=== PATIENT | female | born 1995 | race Caucasian/White ===

== ENCOUNTER 2016-12-27 23:35 | Emergency (ER) | payer OTHER ==
[~2016-12-27] VITALS: Ht 172.7 cm; Wt 61.8 kg
[2016-12-27 23:37] VITALS: TEMP 36.7; Ht 172.7 cm; Wt 61.8 kg
[2016-12-28] MEDS ORDERED: LORAZEPAM 2 MG/ML 1 ML VIAL IV STA (00:07)
[2016-12-28 00:37] LABS: BASO % 0.2 %; BASO ABS # 0.02 K/uL (0-0.2); COMPLETE YES; EOS % 2.6 %; HEMATOCRIT 36.4 % (37-47); IG% 0.3 %; LYMPH % 24.1 %; LYMPH ABS # 2.17 K/uL (1.2-3.4); MEAN CELL VOLUME 87.3 fL (80-100); MEAN CORPUSCULAR HEMOGLOBIN 29.5 pg (25-34); MEAN CORPUSCULAR HGB CONC 33.8 g/dl (32-36); MEAN PLATELET VOLUME 9.4 fL (7.4-10.4); MONO % 8.2 %; NEUT % 64.6 %; PLATELET COUNT 298 K/uL (130-400); RED BLOOD COUNT 4.17 M/uL (4.2-5.4); WHITE BLOOD COUNT 9.01 K/uL (4.8-10.8)
[2016-12-28 00:52] VITALS: O2SAT 100
[2016-12-28 00:53] LABS: ALT/SGPT 23 U/L (12-78); AST/SGOT 11 U/L (15-37); BLOOD UREA NITROGEN 13 mg/dl (7-18); BUN/CREATININE RATIO 14.7 (10-20); CALCIUM 8.7 mg/dl (8.5-10.1); CARBON DIOXIDE 28 mmol/L (21-32); CHLORIDE 105 mmol/L (98-107); CREATININE 0.86 mg/dl (0.60-1.20); GLUCOSE 88 mg/dl (70-99); POTASSIUM 3.6 mmol/L (3.5-5.1); SODIUM 141 mmol/L (136-145)
[2016-12-28] MEDS ORDERED: KETOROLAC TROMETHAMINE 30 MG/ML VIAL IV STA (00:53)
[2016-12-28 00:56] LABS: PREG INTERNAL NEGATIVE QC NEG CLEAR BACKGROUND; PREG INTERNAL POSITIVE QC POS CONTROL LINE
[2016-12-28 01:04] LABS: ALKALINE PHOSPHATASE 47 U/L (45-117)
[2016-12-28 01:59] VITALS: BP 113/87; PULSE 75; O2SAT 98
[2016-12-28] MEDS ORDERED: ATIVAN 1MG HOMEPACK PO ONE (02:00)
--- NOTE | 2016-12-28 03:56 | EMERGENCY ROOM VISIT NOTE ---
History First contact with patient: 23:49 Chief Complaint: CHEST PAIN Stated Complaint: CHEST PAINS AND DIZZINESS Nursing Triage Summary: pt states she started fluoxetine and buspirone today. hx of anxiety, pt states "I've had chest pain before because of my anxiety." states chest pain tonight, "was different." denies n/v/sob, states she does feel dizzy. History of Present Illness The patient is a 21 year old female who presents to the Emergency Room with complaints of intermittent chest pain and dizziness for the past few hours after taking Prozac and BuSpar. Patient states her psychiatrist prescribed this to her yesterday. She took 2 doses of BuSpar and her first of Prozac today. She states shortly after taking the Prozac or symptoms started. Patient states she was placed on this for OCD and anxiety. He did not do blood work prior to placing her on these medications. Patient describes the pain as aching, ranging in severity 4-10 throughout her chest. Nothing makes it better or worse. Patient denies fever, chills, cough, congestion, dyspnea, palpitations, abdominal pain, delusions, hallucinations, suicidal or homicidal ideations. Review of Systems See HPI for pertinent positives & negatives. A total of 10 systems reviewed and were otherwise negative. Past Medical/Surgical History OCD, anxiety Social History Smoking Status: Never Smoker Smokeless Tobacco Use: No Alcohol Use: none Drug Use: none Occupation Status: [employer] Allergies Coded Allergies: Nickel (Verified Adverse Reaction, Intermediate, rash, 12/27/16) Physical Exam Vital Signs Date Time Temp Pulse Resp B/P Pulse Ox O2 Delivery O2 Flow Rate FiO2 12/28/16 01:59 75 18 113/87 98 12/28/16 00:58 76 12/28/16 00:52 100 Room Air 12/28/16 00:37 100 Room Air 12/28/16 00:37 56 20 98/65 100 Room Air 12/28/16 00:19 98 Room Air 12/27/16 23:37 36.7 57 20 144/88 100 Room Air Pain Rating (0-10): 2.0 Physical Exam VITALS: Vitals are noted on the nurse's note and reviewed by myself. Vital signs stable. GENERAL: Pleasant female, in no acute distress, nondiaphoretic, well-developed well-nourished. SKIN: The skin was without rashes, erythema, edema, or bruising. There is no tenting of the skin. Capillary reflex less than 2 seconds. HEAD: Normocephalic atraumatic. EARS: External auditory canals clear, tympanic membranes pearly mckeon without erythema or effusion bilaterally. EYES: Pupils equal round and reactive to light and accommodation. Conjunctivae without injection, sclerae without icterus. Extraocular movements intact. NOSE: Patent, turbinates without inflammation or discharge. MOUTH: Mucous membranes moist. Pharynx without erythema or exudate. Uvula midline. Airway patent. Tongue does not deviate. NECK: Supple without nuchal rigidity. No lymphadenopathy. No thyromegaly. Cervical spine is nontender. No JVD. HEART: Regular rate and rhythm without murmurs gallops or rubs. Chest nontender to palpation LUNGS: Clear to auscultation bilaterally without wheezes, rales or rhonchi. No dullness to percussion. No retractions or accessory muscle use. ABDOMEN: Positive bowel sounds x 4. Normal tympanic percussion. Soft, nontender, without masses or organomegaly. Crum sign negative. No guarding or rebound tenderness. MUSCULOSKELETAL: No muscle atrophy, erythema, or edema noted. NEURO: Patient was alert and oriented to person place and time. Normal sensation to light and sharp touch. No focal neurological deficits. Psych: Pleasant and cooperative Medical Decision & Procedures Laboratory Results 12/28/16 00:30 Red Blood Count 4.17, Mean Corpuscular Volume 87.3, Mean Corpuscular Hemoglobin 29.5, Mean Corpuscular Hemoglobin Concent 33.8, Mean Platelet Volume 9.4, Neutrophils (%) (Auto) 64.6, Lymphocytes (%) (Auto) 24.1, Monocytes (%) (Auto) 8.2, Eosinophils (%) (Auto) 2.6, Basophils (%) (Auto) 0.2, Neutrophils # (Auto) 5.82, Lymphocytes # (Auto) 2.17, Monocytes # (Auto) 0.74, Eosinophils # (Auto) 0.23, Basophils # (Auto) 0.02 12/28/16 00:30 Test 12/28/16 00:30 White Blood Count 9.01 K/uL (4.8-10.8) Red Blood Count 4.17 M/uL (4.2-5.4) Hemoglobin 12.3 g/dL (12.0-16.0) Hematocrit 36.4 % (37-47) Mean Corpuscular Volume 87.3 fL (80-100) Mean Corpuscular Hemoglobin 29.5 pg (25-34) Mean Corpuscular Hemoglobin Concent 33.8 g/dl (32-36) Platelet Count 298 K/uL (130-400) Mean Platelet Volume 9.4 fL (7.4-10.4) Neutrophils (%) (Auto) 64.6 % Lymphocytes (%) (Auto) 24.1 % Monocytes (%) (Auto) 8.2 % Eosinophils (%) (Auto) 2.6 % Basophils (%) (Auto) 0.2 % Neutrophils # (Auto) 5.82 K/uL (1.4-6.5) Lymphocytes # (Auto) 2.17 K/uL (1.2-3.4) Monocytes # (Auto) 0.74 K/uL (0.11-0.59) Eosinophils # (Auto) 0.23 K/uL (0-0.5) Basophils # (Auto) 0.02 K/uL (0-0.2) RDW Standard Deviation 42.8 fL (36.4-46.3) RDW Coefficient of Variation 13.3 % (11.5-14.5) Immature Granulocyte % (Auto) 0.3 % Immature Granulocyte # (Auto) 0.03 K/uL (0.00-0.02) Anion Gap 8.0 mmol/L (3-11) Est Creatinine Clear Calc Drug Dose 101.8 ml/min Estimated GFR () 112.7 Estimated GFR (Non- 97.3 BUN/Creatinine Ratio 14.7 (10-20) Calcium Level 8.7 mg/dl (8.5-10.1) Total Bilirubin 0.2 mg/dl (0.2-1) Direct Bilirubin < 0.1 mg/dl (0-0.2) Aspartate Amino Transf (AST/SGOT) 11 U/L (15-37) Alanine Aminotransferase (ALT/SGPT) 23 U/L (12-78) Alkaline Phosphatase 47 U/L (45-117) Troponin I < 0.015 ng/ml (0-0.045) Total Protein 7.2 gm/dl (6.4-8.2) Albumin 3.5 gm/dl (3.4-5.0) Thyroid Stimulating Hormone (TSH) 1.690 uIu/ml (0.300-4.500) Human Chorionic Gonadotropin, Qual NEG (NEG) Medications Administered Medications (Trade) Dose Ordered Sig/Jade Route Start Time Stop Time Status Last Admin Dose Admin Lorazepam (Ativan Inj) 0.5 mg NOW STAT IV 12/28/16 00:07 12/28/16 00:09 DC 12/28/16 00:33 0.5 MG Lorazepam (Ativan 1MG Home Pack) 1 homepack UD ONCE PO 12/28/16 02:00 12/28/16 02:01 DC 12/28/16 01:55 1 HOMEPACK ED Course Prior records/ancillary studies reviewed. Triage Nursing notes reviewed. Additional history obtained from friends The patient's history was concerning for chest pain. Differential diagnosis: Etiologies such as side effect of medication, cardiac ischemia, aortic dissection, pulmonary embolism, pneumonia, pneumothorax, musculoskeletal, infections, pericarditis, myocarditis, esophageal rupture, gastrointestinal, as well as others were entertained. Physical examination: As above. ER treatment provided: Ativan On reassessment the patient felt better. Diagnostic interpretation by me: The electrocardiogram was negative for pathologic change. Normal sinus, normal intervals, no acute ST-T wave changes. Impression normal sinus rhythm interpreted by myself The labs revealed euthyroid. Negative troponin Imaging studies: Chest x-ray with no acute consolidation, pneumothorax or free air per my interpretation Exam and history seem consistent with chest pain most likely side effect to starting new medication. Patient was advised to stop the medication and see her psychiatrist on Thursday. Patient was advised if she develops suicidal or homicidal ideations to return to the ER immediately. She is advised to rest, decrease stress and see her therapist or here in the ER sooner for worsening signs or symptoms or as needed. Patient is neurovascularly and neurologically intact. She is well-appearing. By the evaluation outlined above emergent etiologies such as cardiac ischemia, aortic dissection, pulmonary embolism, pneumonia, pneumothorax, infections, pericarditis, myocarditis, gastrointestinal, as well as others were deemed relatively unlikely. The pt informed about the findings as listed above. All questions were answered and pleased with the treatment. Return instructions were outlined and the patient was discharged in stable condition. Outpatient prescription management: Ativan Referral: The patient was referred back to therapist and primary care physician for follow -up in 2 to 3 days for a recheck of the current condition. Case reviewed with my attending Medical Decision As above Impression Primary Impression: Non-cardiac chest pain Additional Impression: Medication side effect Departure Information Dispostion Home / Self-Care Condition GOOD Forms HOME CARE DOCUMENTATION FORM, IMPORTANT VISIT INFORMATION Patient Instructions My [facility], ED Chest Pain NonCardiac Additional Instructions Your symptoms are most likely a side effect from your medications. stop the medications now and notify your psychiatrist thursday morning. Rest and drink plenty of fluids as tolerated. Continue current medications. Avoid strenuous activities and anything that worsens your pain. Resume normal activities once your symptoms resolve. Return to the ER immediately for worsening or persistent chest pain, thoughts of suicide or homicide, abdominal pain, vomiting, fevers, chest pains, difficulty breathing, worsening of your condition, or as needed. Follow up with your psychiatrist in 2-3 days for a recheck of your current condition. Problem Qualifiers Additional Impression: Medication side effect Encounter type: initial encounter Qualified Codes: T88.7XXA - Unspecified adverse effect of drug or medicament, initial encounter
--- NOTE | 2016-12-28 06:28 | DIAGNOSTIC IMAGING REPORT ---
CHEST ONE VIEW PORTABLE CLINICAL HISTORY: CHEST PAIN dyspnea COMPARISON STUDY: No previous studies for comparison. FINDINGS: The bones soft tissues and hemidiaphragms are normal. The cardiomediastinal silhouette is normal. The lungs are clear. The pulmonary vasculature is normal. IMPRESSION: Negative chest. Electronically signed by: Ulises Marie M.D. 12/28/2016 6:26 AM Dictated Date/Time: 12/28/2016 6:26 AM
== END 2016-12-28 01:59 | disposition home or self-care (01) ==
LOC: C.EDB 23:36 → C.EDC 12-28 01:59
DX: R07.89 Other chest pain (principal); T88.7XXA Unspecified adverse effect of drug or medicament, initial encounter; R42 Dizziness and giddiness; F42.9 Obsessive-compulsive disorder, unspecified; F41.9 Anxiety disorder, unspecified